=== PATIENT | female | born 1955 | race Caucasian/White ===

== ENCOUNTER 2021-05-13 11:17 | Emergency (ER) | payer SELFPAY ==
[~2021-05-13] VITALS: Ht 177.8 cm; Wt 75.0 kg
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
--- NOTE | 2021-05-13 11:53 | NUR ---
PT RESTING ON ALAN. AWARE ERP DR. HEADLEY WILL BE IN TO SEE PT SHORTLY.
[2021-05-13] MEDS ORDERED: HYDROmorphone 2 MG/ML, 1ML ONE ×2 (11:57→14:12)
[2021-05-13] MEDS ORDERED: METOCLOPRAMIDE 5 MG/ML, 2ML ONE (11:57)
[2021-05-13] MEDS ORDERED: ONDANSETRON 2MG/ML, 2ML ONE (11:57)
[2021-05-13] MEDS ORDERED: HYDROmorphone 1 MG/ML, 1ML INJ IV ONE ×2 (12:00→14:00)
[2021-05-13] MEDS ORDERED: ONDANSETRON 2MG/ML, 2ML IVPush ONE (12:00)
[2021-05-13] MEDS ORDERED: SODIUM CHLORIDE FLUSH 10ML SYR IVF ONE (12:00)
[2021-05-13] MEDS ORDERED: SODIUM CHLORIDE 0.9% 1,000 ML IV ONE (12:00)
[2021-05-13] MEDS ORDERED: SODIUM CHLORIDE 0.9% 1,000ML IVBOLUS ONE (12:00)
[2021-05-13] MEDS ORDERED: METOCLOPRAMIDE 5 MG/ML, 2ML IVPush ONE (12:00)
[2021-05-13 12:24] LABS: BASOPHILS % (AUTO) 1 % (0-1); EOSINOPHILS % (AUTO) 0 % (1-7); LYMPHOCYTES % (AUTO) 8 % (22-44); MEAN CORPUSCULAR HEMOGLOBIN 29.1 pg (27.0-34.8); MONOCYTES % (AUTO) 3 % (2-9); NEUTROPHILS % (AUTO) 88 % (42-75); PLATELET COUNT 334 x10^3/uL (130-400); RED CELL DISTRIBUTION WIDTH 15.7 % (9.6-15.2)
[2021-05-13 12:31] LABS: ALBUMIN 3.7 g/dL (3.4-5.0); ANION GAP 6 mmol/L (5-15); CALCIUM 9.7 mg/dL (8.5-10.1); CHLORIDE 109 mmol/L (98-107)
[2021-05-13 12:37] LABS: ALANINE AMINOTRANSFERASE 34 U/L (12-78); ALKALINE PHOSPHATASE 91 U/L (45-117); BILIRUBIN,TOTAL 0.4 mg/dL (0.2-1.0); CREATININE 0.84 mg/dL (0.55-1.02); TOTAL PROTEIN 8.1 g/dL (6.4-8.2)
--- NOTE | 2021-05-13 12:53 | NUR ---
PT RESTING ON GURNEY. SILVA. VSS. STATES SHE FEELS THE SAME. VS IMPROVING.
[2021-05-13] MEDS ORDERED: NS + 40MEQ KCL 1,000 ML IV ONE (12:54)
[2021-05-13] MEDS ORDERED: NS + 40MEQ KCL 500 ML IV SCH (13:00)
--- NOTE | 2021-05-13 13:39 | NUR ---
PT SLEEPING ON ALAN. NADN. PEREZ.
[2021-05-13] MEDS ORDERED: POTASSIUM CHLORIDE 20 MEQ TAB.ER.PRT ONE (13:53)
--- NOTE | 2021-05-13 13:57 | NUR ---
ERP DR. HEADLEY AT BEDSIDE FOR RE-EVAL.
[2021-05-13] MEDS ORDERED: POTASSIUM CHLORIDE 20 MEQ TAB.ER.PRT PO ONE (14:00)
--- NOTE | 2021-05-13 14:18 | NUR ---
BREAK RN: EMS DRIVER PER NOV. IVF BOLUS AND POTASSIUM INFUSING. PT HAS NOT VOMITTED SINCE TAKING PO POTASSIUM. PT CONNECTED TO ALL MONITORING. CALL LIGHT IN REACH. POSITIONED FOR COMFORT.
[2021-05-13 14:52] VITALS: BP 121/56
--- NOTE | 2021-05-13 14:52 | NUR ---
PT TOLERATED PO FLUIDS AND PO K TABLETS. PT RESTING ON [facility] FORK. [facility]. PT PLACED FOR RECHECK.
== END 2021-05-13 16:36 | disposition home or self-care (01) ==
LOC: ED 14:00
DX: R11.2 Nausea with vomiting, unspecified (principal); E87.6 Hypokalemia; I10 Essential (primary) hypertension
CPT/HCPCS: 36415; 80053; 83690; 85025; 93005; 96361; 96365; 96366; 96375; 96376; 99284; J1170; J2405; J2765; J3480; J7030